=== PATIENT | male | born 1970 ===

== ENCOUNTER → 2023-11-17 03:07 | Outpatient (CLI) | payer OTHER, SELFPAY ==
--- NOTE | 2023-11-17 | DI.MRI_ITS ---
Exam(s) MR LOWER JOINT LT WO EXAM: MR LOWER JOINT LT WO CLINICAL HISTORY: LIMITED LT HIP ROM, ANTALGIC GAIT, DIFFICULTY WITH SIT>STAND TECHNIQUE: Multiplanar multisequence MRI of the hip was performed. 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 There is also a small-moderate size unilateral left hip joint effusion. There is articular cartilage loss on both sides the joint consistent with superimposed osteoarthritis. The ipsilateral left hip labrum is irr egular which is most probably combination of of developmental and chronic tearing. There is no obvio us loose intra-articular bodies. MARROW SIGNAL: There is diffuse T1 hypointense marrow replacement signal seen throughout both sides o f the pelvis and hips. There also cystic structures seen in the marrow of the inter and subtrochante matthew region of the left hip-proximal left femur, this is only seen on the left side. These findings a re nonexpansile and there is no associated para osseous soft tissue mass. There is also subtle signa l findings in the subtrochanteric region of the left hip which probably reflect prior surgical proced ure(s). BURSAE: There is no evidence of trochanteric bursitis. There is no evidence of iliopsoas bursitis. MUSCLES/TENDONS: No evidence of tendinitis nor tendon tears. No asymmetric muscle atrophy evident. ISCHIAL TUBEROSITY/HAMSTRING: There is no abnormal intraosseous signal in the ipsilateral ischial tub erosity nor tear of the common hamstrings tendon attachment site at this level. IMPRESSION: 1. Flattening of the left femoral head and appearance of the acetabulum consistent with developmental dysplasia and there are changes of secondary osteoarthritis in left hip noted including loss of shay cular cartilage, degenerative subarticular cysts, and multilevel labral abnormality. There is a smal l-moderate size joint effusion noted. 2. Diffuse T1 hypointense fatty marrow replacement throughout the pelvis and both hips. Apparently t here is history of spherocytosis anemia. 3. There are also multiple non expansile cystic structures in the inter and subtrochanteric region of the left hip, not associated with cortical breakthrough nor soft tissue mass. First read by [facility]. DATA REPOSITORY:
--- NOTE | 2023-11-18 20:09 | DI.VRAD_ITS ---
PROCEDURE INFORMATION: Exam: MR Left Lower Extremity Joint Without Contrast; Hip Exam date and time: 11/17/2023 9:46 AM Age: 53 years old Clinical indication: Worsening left hip pain for 6 months; Patient HX: Limited lt hip rom, antalgic gait, difficulty with sit>stand. Reported history of hip dysplasia from and multiple prior surgeries. Spherocytic anemia. TECHNIQUE: Imaging protocol: Magnetic resonance imaging of the left lower extremity joint without contrast. Exam focused on the hip. COMPARISON: No relevant prior studies available. FINDINGS: Bones/joints: There is flattening of the left femoral head with subchondral cystic changes, consistent with history of hip dysplasia. There is a left hip joint effusion noted. There is articular cartilage loss seen along the femur and the acetabulum, suggestive of superimposed osteoarthritis. Multiple cystic changes noted within the proximal femur, which is nonspecific. Linear regions of sclerosis seen in the proximal diaphysis of the femur in the region of the lesser trochanter may be secondary to prior fracture or prior procedure. There is diffuse marrow replacement seen throughout the osseous structures bilaterally, most prominent on the T1 sequences. Labrum: Irregular appearance of the labrum is consistent with congenital abnormality. TENDONS: Tendons of iliopsoas group: No evidence of tear. Tendons of medial compartment of thigh: No evidence of tear. Tendons of lateral rotators of hip: No evidence of tear. Tendons of gluteal group: No evidence of tear. Soft tissues: Unremarkable. IMPRESSION: 1. Flattening of the left femoral head consistent with known congenital hip dysplasia. 2. Small left hip effusion noted with osteoarthritic changes seen. 3. Diffuse bone marrow replacement noted throughout, which may be related to history of spherocytic anemia. 4. Cystic structures seen throughout the left proximal femur are nonspecific but could be secondary to chronic degenerative changes in this region, although more suspicious etiology is not entirely excluded. 5. Findings suggestive of prior surgical procedure in the left proximal femur. 6. THIS REPORT CONTAINS FINDINGS THAT MAY BE CRITICAL TO PATIENT CARE. The findings were verbally communicated via telephone conference with RNGERMAN at 6:29 PM predatory animal hunter on 11/18/2023. The findings were acknowledged and understood. Dictated and Authenticated by: Elo Eddy MD. Ordering:NELDA Carolina MD
== END ==
PROVIDERS: Visit Provider Physical Therapist
DX: M25.552 Pain in left hip (principal)
CPT/HCPCS: 73721